=== PATIENT | male | born 1950 | race Caucasian/White ===

== ENCOUNTER 2016-10-22 14:09 | Emergency (ER) | payer MEDICARE, OTHER ==
[~2016-10-22] VITALS: Ht 193 cm; Wt 52.6 kg
[2016-10-22] MEDS ORDERED: PANT40TA2 PO (14:32)
[2016-10-22] MEDS ORDERED: MIRA33504 PO (14:32)
[2016-10-22] MEDS ORDERED: FAMO40TA3 PO (14:32)
[2016-10-22] MEDS ORDERED: PROBCAP15 PO (14:32)
[2016-10-22 15:46] LABS: MEAN CORPUSCULAR HEMOGLOBIN 28.1 pg (27.0-33.0); MEAN CORPUSCULAR HGB CONC 32.1 g/dl (32.0-36.5); MEAN CORPUSCULAR VOLUME 87.6 fl (80.0-96.0); PLATELET COUNT, AUTOMATED 399 k/mm3 (150-450); RED CELL DISTRIBUTION WIDTH 14.1 % (11.5-14.5); WHITE BLOOD COUNT 10.6 K/mm3 (4.0-10.0)
[2016-10-22 16:02] LABS: ALBUMIN 3.9 GM/DL (3.2-5.2); ALBUMIN/GLOBULIN RATIO 0.87 (1.00-1.93); BILIRUBIN,DIRECT 0.1 MG/DL (0.0-0.2); BILIRUBIN,TOTAL 0.4 MG/DL (0.2-1.0); CALCIUM LEVEL 9.3 MG/DL (8.8-10.2); CREATININE FOR GFR 1.36 MG/DL (0.70-1.30); TOTAL PROTEIN 8.4 GM/DL (6.4-8.2)
[2016-10-22 16:26] LABS: EOSINOPHILS 1 % (0-5); PLATELET CLUMPS SMALL AMT
[2016-10-22 16:27] LABS: HYPOCHROMASIA 1+
[2016-10-22] MEDS ORDERED: ISOVUE-370 76% 100ML VIAL (Q9967) As Ordered ONE (16:48)
[2016-10-22] MEDS ORDERED: NS 1,000 ML IV ONE (17:00)
--- NOTE | 2016-10-22 18:00 | REP ---
CT abdomen and pelvis with IV contrast: Without oral contrast. History: Abdominal pain. Status post Whipple. No comparison imaging. 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 CT contrast dose: 100 ml of Isovue [address] findings: Digital director loan radiograph demonstrates an unremarkable bowel gas pattern. The lung bases show some linear fibrosis in the right middle lobe and two somewhat spiculated small areas of parenchymal opacity in the left lower lobe. The largest of these measures 7 x 11 by 6 mm. This has a somewhat triangular shape particularly on sagittal reformatted images and may be pleuroparenchymal fibrosis. The other is somewhat more nodular and measures 6 mm in greatest diameter. These should be correlated with comparison images if available. Malignancy cannot be completely excluded. The liver and spleen are normal in size and homogeneous in texture except for the presence of pneumobilia predominantly noted in the left lobe of the liver. This would be expected post Whipple. The tail of the pancreas remains in place with minimally prominent pancreatic duct. There is a pattern of dystrophic calcifications along the medial wall of the stomach at the level of the gastric jejunostomy tube. There is a loop of dilated small bowel from the gastrojejunostomy which appears to be the afferent loop based on coronal images. Mildly dilated small bowel loops are noted elsewhere in the right abdomen. There is profound atrophy of the right kidney, which does not enhance. The left kidney is unremarkable. No retroperitoneal adenopathy or mass is seen. A normal appendix is noted in the right lower quadrant. There is left colonic diverticulosis. The urinary bladder has an intact appearance. Seminal vesicles and prostate are unremarkable. No pelvic mass or adenopathy seen. Bone window settings show no bony destructive lesion. Impression: 1. Postoperative changes in the upper abdomen including resection of the body and head of the pancreas and choledochojejunostomy with pneumobilia. 2. Dystrophic calcifications along the medial aspect of the gastrojejunostomy. The afferent loop appears somewhat dilated with fluid and shows mural thickening. No evidence of free air is seen. 3. Severely atrophic essentially nonfunctioning right kidney. 4. Left colonic diverticulosis without CT evidence of diverticulitis. 5. There are two somewhat spiculated soft-tissue densities in the left lower lobe. Primary versus secondary malignancy cannot be completely excluded. Comparison with prior chest and abdomen CT images recommended. Failing this, followup chest CT study suggested in 4 months to 6 months. Signed by Trent Hernandez MD 10/22/2016 07:21 P
[2016-10-22 20:57] VITALS: BP 147/82
--- NOTE | 2016-10-23 09:01 | ECGEPIP ---
Stationary ECG Study [facility] ED Test Date: 2016-10-22 Pat Name: CYN MELISSA Department: Room: - Gender: M Barkeep: annabella : 1950 Requested By: MIKAL Shen Order Number: [id number] Reading MD: Marielena Abarca Measurements Intervals [place] Rate: 82 P: 87 LA: 135 QRS: 78 QRSD: 112 T: 82 QT: 364 QTc: 428 Interpretive Statements SINUS RHYTHM WITH OCCASIONAL SUPRAVENTRICULAR PREMATURE COMPLEXES POSSIBLE RIGHT VENTRICULAR CONDUCTION DELAY EARLY REPOLARIZATION VS ISCHEMIA VS ARTIFACT CLINICAL CORRELATION NO PRIOR FOR COMPARISON Electronically Signed On 10-23-2016 9:01:31 EDT by Marielena Abarca
== END 2016-10-22 21:00 | disposition home or self-care (01) ==
LOC: M ED 16:04
DX: R10.9 Unspecified abdominal pain (principal); N17.9 Acute kidney failure, unspecified; R93.5 Abnormal findings on diagnostic imaging of other abdominal regions, including retroperitoneum; R06.02 Shortness of breath; K59.00 Constipation, unspecified; I10 Essential (primary) hypertension; I77.89 Other specified disorders of arteries and arterioles; Z85.07 Personal history of malignant neoplasm of pancreas; F17.200 Nicotine dependence, unspecified, uncomplicated; Z79.899 Other long term (current) drug therapy; Z85.819 Personal history of malignant neoplasm of unspecified site of lip, oral cavity, and pharynx
CPT/HCPCS: 51702; 74177; 80048; 80076; 81001; 83605; 83690; 85025; 93005; 93041; 96360; 96361; 99285; Q9967